=== PATIENT | female | born 1990 | race Caucasian/White ===

== ENCOUNTER 2016-07-12 20:22 | Emergency (ER) | payer OTHER ==
--- NOTE | ~2016-07-12 | CR63 ---
[facility] A Service of [facility] & [facility] RADIOLOGY TEXT RESULTS PATIENT: ERIKA MARKHAM LOCATION: CFTX : 86 UNIT #: [id number] AGE: [address]: Aga Turner APRN SEX: F ORDER DR: [id number] [facility] [address] [place], [place] [address] [id number] E MR#: [id number] Acc #: [id number] NAME: ERIKA MARKHAM : 1990 SEX: F STUDY DATE/TIME: 07/12/2016 20:50 UNIT: [facility] ROOM: STUDY DESCRIPTION: CR Chest 2 View Attending Physician: Aga Turner A.P.R.N. Referring Physician: John Fregoso M.D. Ordering Physician: Aga Turner A.P.R.N. Primary Care Physician: John Fregoso M.D. MEDICAL IMAGING REPORT This report is preliminary unless electronic signature is present EXAM PA and lateral chest, 2 views, 07/12/2016. HISTORY Cough since last night, mid chest pain. FINDINGS PA and lateral examination of the chest upright shows a good expansion of the parenchyma with a normal distribution of the pulmonary vascularity. There is no indication of congestion, effusion, infiltrate, tumor, or nodular density. The pleural reflections and diaphragmatic contours are normal. The cardiac silhouette and mediastinal anatomy is within normal limits. IMPRESSION Normal chest. Dictated by... Pierre Farah M.D. THIS IS AN ELECTRONICALLY VERIFIED REPORT Pierre Farah M.D. at 07/15/2016 4:33 PM TEV/pc TD: 07/13/2016 14:33 JOB #: [id number] MEDICAL IMAGING REPORT COPY
[~2016-07-12 20:22] MED LIST: ADVAIR 2501 DISK W/D PO; ALBUTEROL17 GM INH; ALPRAZOLAM PO; AMITRYPTYLINE PO; AMOXICILLIN PO; ATIVAN PO; BUSPIRONE HCL10 M1 PO; BUSPIRONE HCL10 MG PO; CARAFATE1 GM PO; CIPRO PO; DESYREL50 MG; DESYREL50 MG DOB; DIPHENYDRAMINE25 MG PO; FLUOXETINE HCL20 M1 PO; GABAPENTIN400 M2 PO; GABAPENTIN800 MG PO; HYCODAN PO; INDOMETHACIN50 MG PO; KEPPRA500 M2 PO; KEPPRA500 MG PO; MEDROL PO; MOBIC15 MG PO; MUCINEX D ER T1 EAC1 PO; NEURONTIN PO; PANTOPRAZOLE SO20 MG PO; PROTONIX20 MG PO; PROZAC40 M1 PO; SARAFEM20 M1 PO; TEGRETOL PO; TEGRETOL-XR200 MG PO; TOPAMAX25 MG PO; TOPAMAX50 MG; VICODIN 5/500 T1 TAB PO; XANAX0.5 M1 PO; ZESTRIL10 M1 PO; ZITHROMAX PO; ZOLOFT PO
[2016-07-12 20:53] LABS: INFLUENZA A NEG (NEG); INFLUENZA B NEG (NEG)
== END 2016-07-12 21:45 | disposition home or self-care (01) ==
LOC: CFTX 20:22
PROVIDERS: Nurse Practitioner
DX: J06.9 Acute upper respiratory infection, unspecified (principal); F17.210 Nicotine dependence, cigarettes, uncomplicated; Z91.030 Bee allergy status; Z88.8 Allergy status to other drugs, medicaments and biological substances
CPT/HCPCS: 71020; 84703; 87651; 87804; 99283

== ENCOUNTER 2016-07-16 15:25 | Emergency (ER) | payer OTHER ==
--- NOTE | ~2016-07-16 | US60 ---
[facility] A Service of [facility] & [facility] RADIOLOGY TEXT RESULTS PATIENT: ERIKA MARKHAM LOCATION: CFTX : 86 UNIT #: [id number] AGE: [address]: Holly Suarez SEX: F ORDER DR: [id number] [facility] [address] [place], [place] [address] [id number] E MR#: [id number] Acc #: [id number] NAME: ERIKA MARKHAM : 1990 SEX: F STUDY DATE/TIME: 07/16/2016 13:45 UNIT: [facility]MS ROOM: STUDY DESCRIPTION: US /Mat <14Wk Ea Add Gest Attending Physician: Holly Suarez Pa-C Ordering Physician: Holly Suarez Pa-C Primary Care Physician: John Fregoso M.D. MEDICAL IMAGING REPORT This report is preliminary unless electronic signature is present EXAM ultrasound. DATE OF EXAM 07/16/2016 HISTORY 26-year-old female with "possible ." Cramping for 1 week. Last menstrual period 06/12/2016. Beta hCG 169.5. COMPARISON CT abdomen and pelvis, 11/06/2009. TECHNIQUE Transabdominal imaging was performed for generalized visualization of the pelvic structures while transvaginal imaging was performed for more detailed evaluation of the adnexa. FINDINGS The uterus measures 5.6 x 2.4 x 4.8 cm. The endometrial bilayer thickness is 9 mm. A hypoechoic complex cystic type lesion with low-level internal echoes is demonstrated in the anterior submucosal upper uterine segment. It does not have a traditional appearance of a gestational sac with surrounding decidual reaction. It measures about 5 x 4 mm. It demonstrates no significant internal vascularity on color Doppler imaging. While it is conceivable, it could represent an early gestational sac, pseudo-gestational sac or even a submucosal fibroid can have a similar appearance. Cervical nabothian cyst is incidentally noted. The right ovary measures 3.7 x 2.6 x 3.2 cm. It contains a complex appearing cystic lesion with the eccentric irregular mural nodularity. [facility] A Service of [facility] & [facility] RADIOLOGY TEXT RESULTS PATIENT: ERIKA MARKHAM LOCATION: [facility] : [birth year] UNIT #: [id number] AGE: [address]: Holly Suarez SEX: F ORDER DR: This complex right ovarian and cystic lesion measures approximately 2 x 1.7 x 1.9 cm. The more solid nodular component demonstrates no significant interval vascular and color Doppler imaging. The right ovary does demonstrate normal color and spectral Doppler flow, however. The left ovary measures 1.8 x 2.4 x 1 cm without cystic or solid abnormality and the left ovary demonstrates normal color spectral Doppler flow. Small quantity pelvic free fluid is demonstrated, greatest on the right. IMPRESSION 1. A true intrauterine or extrauterine gestational sac is not seen at this time. 2. A 5 mm hypoechoic lesion is demonstrated in the submucosal anterior mid to upper uterine segment. It does not have a typical appearance for a simple cyst or a gestational sac. It lacks traditional decidual reaction, as well. It is unclear whether this could represent an early gestational sac or potentially a submucosal fibroid. In either case, continued sonographic and clinical follow up and serial beta-hCG follow up would be necessary. 3. Complex right ovarian cystic lesion measuring up to 2 cm. This could represent hemorrhagic cyst or, in the context of , a corpus luteum cyst. Continued attention at surveillance imaging recommended. 4. Normal flow is documented to each ovary. 5. Cervical nabothian cyst. 6. Small pelvic free fluid. Dictated by... Denita Wagner M.D. THIS IS AN ELECTRONICALLY VERIFIED REPORT Denita Wagner M.D. at 07/17/2016 10:00 AM FISH/harsha TD: 07/16/2016 22:32 JOB #: [id number] MEDICAL IMAGING REPORT COPY
[2016-07-16 12:23] LABS: URINE SOURCE CLEAN CATCH
[2016-07-16 12:28] LABS: URINE APPEARANCE CLOUDY; URINE BILIRUBIN NEG (NEG); URINE BLOOD NEG (NEG); URINE COLOR YELLOW; URINE GLUCOSE NEG (NEG); URINE KETONE NEG (NEG); URINE LEUKOCYTE ESTERASE TRACE (NEG); URINE NITRATE NEG (NEG); URINE PROTEIN TRACE (NEG); URINE SPECIFIC GRAVITY 1.035 (1.003-1.035); URINE UROBILINOGEN 0.2 MG/DL (NEG)
[2016-07-16 12:30] LABS: CULTURE INDICATED? YES; URBCS1 AUWI 0-2 /[HPF] (0-2); URINE BACTERIA AUWI 2+ (NEGATIVE); URINE SQUAMOUS EPITHELIAL CELL MANY /[HPF]
[2016-07-20 20:03] LABS: CHLAMYDIA TRACH Not Detected (Not Detected); N GONOR Not Detected (Not Detected)
== END 2016-07-16 16:00 | disposition home or self-care (01) ==
LOC: CFTX 15:25
PROVIDERS: Emergency Medicine; Physician Assistant Medical
DX: Z32.01 Encounter for pregnancy test, result positive (principal); F17.210 Nicotine dependence, cigarettes, uncomplicated; Z91.030 Bee allergy status; Z88.1 Allergy status to other antibiotic agents
CPT/HCPCS: 76802; 81003; 84702; 84703; 87086; 87491; 87591; 87808; 87905; 99284

== ENCOUNTER 2016-10-11 22:53 | Emergency (ER) | payer OTHER ==
[2016-10-11] MEDS ORDERED: DESYREL100 MG (23:01)
[2016-10-11] MEDS ORDERED: BENADRYL (23:01)
[2016-10-11] MEDS ORDERED: CITRANATAL B-C1 EAC1 (23:01)
== END 2016-10-12 01:14 | disposition home or self-care (01) ==
LOC: SED 22:53
DX: O26.892 Other specified pregnancy related conditions, second trimester (principal); R10.84 Generalized abdominal pain; R19.7 Diarrhea, unspecified; O99.512 Diseases of the respiratory system complicating pregnancy, second trimester; J45.909 Unspecified asthma, uncomplicated; J18.9 Pneumonia, unspecified organism; O99.332 Smoking (tobacco) complicating pregnancy, second trimester; F17.200 Nicotine dependence, unspecified, uncomplicated; Z79.899 Other long term (current) drug therapy; Z98.890 Other specified postprocedural states; Z88.8 Allergy status to other drugs, medicaments and biological substances; Z91.030 Bee allergy status
CPT/HCPCS: 84703; 96360; 99284